=== PATIENT | male | born 1995 ===

== ENCOUNTER → 2017-09-22 | Outpatient (REF) | payer OTHER ==
[2017-09-22 20:06] LABS: VITAMIN B12 LEVEL 633 PG/ML (247-911)
[2017-09-22 20:07] LABS: FOLATE 13.9 NG/ML (>5.4)
[2017-09-25 08:06] LABS: SJOGREN'S ANTI SS-A <0.2 AI (0.0-0.9); SJOGREN'S ANTI SS-B <0.2 AI (0.0-0.9)
== END ==
LOC: M LABNEURO 10:47
PROVIDERS: ATTEND Psychiatry & Neurology Neurology
DX: R25.1 Tremor, unspecified (principal)